=== PATIENT | male | born 1960 | race Caucasian/White ===

== ENCOUNTER 2019-12-02 12:48 | Day surgery (SDC) | payer MEDICARE, MEDICAID, SELFPAY ==
[2019-12-02] VITALS (10 sets, daily range): BP systolic 119–141; BP diastolic 67–88; PULSE 60–74; RESP 10–19; TEMP 36.7–37.3; O2SAT 95–98
--- NOTE | 2019-12-02 | DI.RAD.S_ITS ---
PROCEDURE: XR ABDOMEN 3V INDICATIONS: RIGHT STENT PLACEMENT AND TUMOR BIOPSY TECHNIQUE: 3 intraoperative views of the abdomen. COMPARISON: None. FINDINGS: Ureteral stent placement. IMPRESSION: Intraoperative views obtained during ureteral stent placement. Dictated by: Pedro Cardenas M.D. on 12/02/2019 at 18:54 Approved by: Pedro Cardenas M.D. on 12/02/2019 at 18:55
[2019-12-02] MEDS: LACTATED RINGERS 1,000 ML 42 ML IV ×2 (14:32→17:56)
--- NOTE | 2019-12-02 16:58 | PM.PREOP ---
Pre-operative Note Interval Note History & Physical reviewed/Exam performed by Physician: Yes Changes to H&P: No H&P completed within 30 days and has changed as indicated here:: There are no changes to the history and physical examinations scanned in and on file.
[2019-12-02] MEDS: CELECOXIB 200 MG CAPSULE 400 MG PO (17:04)
[2019-12-02] MEDS: ACETAMINOPHEN 325 MG TABLET 975 MG PO (17:04)
[2019-12-02] MEDS: GABAPENTIN 300 MG CAPSULE PO (17:05)
[2019-12-02] MEDS: CEFAZOLIN 2 GM/100 ML FROZ.PIGGY IV (17:08)
--- NOTE | 2019-12-02 17:37 | SUR.OPER ---
Lithotomy on padded OR bed, head on pillow, arms secured on padded arm boards at <90 degrees abduction. Legs secured in padded yellow fins stirrups.
[2019-12-02] MEDS: IOPAMIDOL 15 ML VIAL INJ (17:47)
[2019-12-02] MEDS: BELLADONNA/OPIUM SUPPOSITORIES 1 EACH PR (17:48)
--- NOTE | 2019-12-02 18:08 | P.OP_ITS ---
Operative Date/Time/Diagnoses Date of procedure: 12/02/19 Time of procedure: 18:08 Pre-op diagnosis: 1. Obstructing right ureteral mass. 2. Gross hematuria. Post-op diagnosis: same Procedure & Clinicians Procedure: 1. Cystoscopy and right ureteroscopy. 2. Cystoscopy and right ureteral stent placement (6 [place] by 26 cm). Same procedure as scheduled: Yes Indications: 1. Obstructing right ureteral mass. 2. Gross hematuria. Surgeon: Graciela Flores Click Yes if Unassisted: Yes Anesthesia Type: General Operative Notes Findings: 1. 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 2. Urethra-normal. 3. External sphincter-coapted. 4. Prostate-4+ cm length with moderately obstructing lateral lobe hyperplasia. 5. Bladder 1+ trabeculation normal orifices bilaterally there was no visible stone or tumor or diverticulum. Closure Type: not applicable Specimen(s): none sent Applied: other (Six [place] by 26 cm right double-J ureteral stent.) Estimated Blood Loss (mL): 2 Blood products transfused: none Tourniquet time (min): 0 Procedure in detail: The patient was positioned in supine was administered general anesthesia. He was then repositioned in semi-lithotomy the lower abdomen genitalia and groin were then prepped and draped in sterile fashion. The 22 [place] panendoscope was then passed into the lower urinary tract with the findings as described above. Next a 0.35 guidewire was advanced into the right collecting system under direct fluoroscopic guidance. Obstruction was met at about the level of the iliac vasculature. A 4 cm 12 [place] balloon dilating catheter was then advanced over the guidewire and inflated to 18 atmospheres across the right ureterovesical junction for 5 minutes. The balloon was then deflated backloaded off the wire. The semi-rigid ur eteroscope was then advanced into the lower urinary tract and then into the right ureteral orifice. The distal most ureter was demonstrated normal urothelium other than that associated with acute balloon dilation trauma no evidence of malignancy. At approximately the level of the iliac vasculature at the junction of the middle and distal 3rd of the right ureter multifocal mixed solid and papillary neoplasm were encountered at this point the guidewire was advanced through the ureteral scope and carefully advanced up proximally with a coil a stat wished in the intrarenal right collecting system by fluoroscopy. Scope was then advanced along the guidance of the previously positioned ureteral guidewire with findings of multifocal mixed papillary and solid neoplasm to approximately the level of the junction of the proximal mid right ureter. Generation Technologist photographs were obtained from the proximal normal ureter to that just distal to the distal extent of the tumor. In a similar manner int raoperative fluoroscopic images were obtained and request was made to describe been labile the level of the most proximal extent of the neoplastic segment and also that level representing the distal most extent of the neoplastic segment. The ureteroscope was then removed. The panendoscope was front loaded on the guidewire. A 6 [place] by 24 cm double-J ureteral stent was then selected and advanced over the guidewire under direct and fluoroscopic guidance. No retrieval line was left attached. The bladder was drained completely and was rotation was moved final time. Patient was then awakened transferred to [facility] and transferred to recovery in stable condition. Complications: none Post-operative Condition: stable Disposition: PACU Plan for aftercare: Discharge home
[2019-12-02] MEDS: fentaNYL 100 MCG/2 ML INJ IV ×2 (18:24→18:32)
[2019-12-02] MEDS: OXYCODONE IR 5 MG TABLET PO (18:39)
--- NOTE | 2019-12-02 18:41 | SUR.PHASEI ---
Pt arrived slowly awoke, c/o pain medicated with fentanyl and percolone. Pain started 5/10 down to 4/10. Dr. Flores talked at length with pt.
--- NOTE | 2019-12-02 19:44 | SUR.PHASEII ---
Prescriptions given to friends per pt request. They went to get medication. Pt dressed and waiting for their return
== END 2019-12-02 19:50 | disposition home or self-care (01) ==
PROVIDERS: PCP Family Medicine; Referring Provider Specialist; Visit Provider Specialist
PROC: (CPT 52332; principal; 2019-12-02 15:15)
DX: C66.1 Malignant neoplasm of right ureter (principal); J44.9 Chronic obstructive pulmonary disease, unspecified; G47.33 Obstructive sleep apnea (adult) (pediatric); N40.1 Benign prostatic hyperplasia with lower urinary tract symptoms; N18.9 Chronic kidney disease, unspecified; N52.9 Male erectile dysfunction, unspecified; K40.90 Unilateral inguinal hernia, without obstruction or gangrene, not specified as recurrent
CPT/HCPCS: 52332; 74021; 76000; J0690; J1100; J2405; J2704; J3010